=== PATIENT | female | born 1960 | race Caucasian/White ===

== ENCOUNTER 2019-04-12 23:02 | Inpatient (IN) | payer OTHER ==
[~2019-04-12] VITALS: Ht 162.6 cm; Wt 54.5 kg
[2019-04-12 23:10] VITALS: Ht 162.6 cm; Wt 54.5 kg
--- NOTE | 2019-04-12 23:15 | NUR ---
EKG IN PROGRESS IN TRIAGE.
--- NOTE | 2019-04-12 23:29 | NUR ---
PT PRESENTED TO ED FOR NONRADIATING CHEST PRESSURE, SOB, AND DRY COUGH WHEN "LAYING DOWN". PT A&0X4, SPEAKING FULL CLEAR SENTENCES. PT SHOWING AFIB ON CM. CM AND [address] BREATHING EVEN AND UNALBORED. PT STATES NAUSEA BUT DENIES VOMITING OR DIARRRBEA. AWAITING MSE. WILL CONTINUE TO MONITOR.
--- NOTE | 2019-04-13 00:15 | NUR ---
CARDIZEM 10 MG GIVEN IVP. PT TOLERATED WELL. PT STILL AFIB ON CM WITH HR BETWEEN 89-119. DR KEITA MADE AWARE. WILL CONTINUE TO MONITOR. FAMILY AT BEDSIDE, WILL CONTINUE TO MONITOR.
[2019-04-13 00:28] LABS: BASOPHIL % 0.5 % (0-2); PLATELET COUNT 204 x10^3mcL (130-400)
[2019-04-13 00:29] LABS: RED CELL DISTRIBUTION WIDTH 15.9 % (11.5-14.5)
[2019-04-13 00:56] LABS: CARBON DIOXIDE 22.7 mmol/L (21-32); CHLORIDE SERUM 107 mmol/L (98-107); CREATININE SERUM 0.9 mg/dL (0.6-1.0); GFR1 > 60 mL/min; GLUCOSE SERUM 114 mg/dL (74-106); POTASSIUM SERUM 4.3 mmol/L (3.5-5.1); SODIUM SERUM 142 mmol/L (136-145)
[2019-04-13 01:00] LABS: ALBUMIN 3.7 g/dL (3.4-5.0); ALKALINE PHOSPHATASE 92 U/L (46-116); ALT/SGPT 94 U/L (14-59); AST/SGOT 45 U/L (15-37); BILIRUBIN TOTAL 0.9 mg/dL (0.20-1.00); TOTAL PROTEIN, SERUM 6.8 g/dL (6.4-8.2)
--- NOTE | 2019-04-13 01:05 | NUR ---
PT SITTING ON GURNEY IN NAD, BREATHING EVEN AND UNLABORED. PT A&0X4, SPEAKING FULL CLEAR SENTENCES. CM AND [address] FAMILY AT BEDSIDE. WILL CONTINUE TO MONITOR.
--- NOTE | 2019-04-13 01:35 | NUR ---
NOTED NSR ON CM. DR KEITA AWARE, NO FURTHER ORDERS AT THIS TIME.
[2019-04-13 02:34] LABS: MAGNESIUM 2.1 mg/dL (1.8-2.4); PHOSPHOROUS 3.7 mg/dL (2.5-4.9)
[2019-04-13 03:17] LABS: T3 TOTAL 0.91 ng/mL
[2019-04-13 03:27] LABS: FREE T4 1.42 ng/dL (0.76-1.46)
--- NOTE | 2019-04-13 03:50 | NUR ---
REPORT GIVEN TO MAGGIE VITAL.
--- NOTE | 2019-04-13 04:15 | NUR ---
PT TRANSFERED TO ROOM 222A VIA GURNEY AT THIS TIME BY AMANDA VITAL AND SAHDE EMT. PT A&0X4, SPEAKING FULL CLEAR SENTENCES. PT BREATHING EVEN AND UNLABORED. IV PATENT WITH NO COMPLICATIONS. ARASH VITAL AT ASSUME FURTHER CARE OF PT AT THIS TIME.
--- NOTE | 2019-04-13 04:18 | NUR ---
PT TAKEN UPSTAIRS TO TELE FLOOR ROOM 222A BY MYSELF AND SHADE EMT. PT IS A/O X4. PT RESPS ARE E/U. NO INCIDENCE NOTED
--- NOTE | 2019-04-13 04:20 | NUR ---
RECEIVED PT FROM ED VIA BED, ACCOMPANIED BY NURSE. PT AAOX4, AUSTRIAN SPEAKING ONLY. ABLE TO MAKE NEEDS KNOWN. ON TELE#40 A-FIB, DENIES CP/PRESSURE, BP 118/84, HR 71. PALPABLE PULSES TO ALL EXTREMITIES. NO EDEMA NOTED. LUNG SOUNDS CTA ON RA. BREATHING EVEN AND UNLABORED, NO SIGNS OF RESP DISTRESS NOTED. ABD SOFT AND NONDISTENDED, ACTUIVE BS X4 QUAD. LAST BP 04/12/19. DENIES N/V AT THIS TIME. VOIDS FREELY BRP. AMBULATORY. IV SL TO LAC FLUSHING WELL. SITE WNL. NO SIGNS OF ACUTE DISTRESS NOTED. BED AT LOWEST SETTING, SIDE RAILS X2 UP, CALL LIGHT WITHING REACH. WILL CONTINUE TO MONITOR.
[2019-04-13 04:35] VITALS: BP 118/84
[2019-04-13 05:07] LABS: microscopic required? YES; urine erythrocyte TRACE (NEGATIVE)
[2019-04-13 05:27] LABS: AMPHETAMINE QUAL UR NONE DETECTED (See below)
[2019-04-13 06:27] LABS: BASOPHIL % 0.5 % (0-2); PLATELET COUNT 191 x10^3mcL (130-400)
--- NOTE | 2019-04-13 06:28 | NUR ---
PT IN BED AWAKE, BREATHING EVEN AND UNLABORED. NO SIGNS OF RESP DISTRESS NOTED. ALL NEEDS ASSSESSED AND ATTENDED TO. NO ACUTE DISTRESS NOTED. BED AT LOWEST SETTING, SIDE RAILS X2 UP, CALL LIGHT WITHING REACH. WILL ENDORSE CARE TO AM NURSE.
[2019-04-13 06:44] VITALS: BP 163/79
[2019-04-13 07:21] LABS: CALCIUM 8.3 mg/dL (8.5-10.1); CARBON DIOXIDE 25.2 mmol/L (21-32); CHLORIDE SERUM 109 mmol/L (98-107); CREATININE SERUM 0.8 mg/dL (0.6-1.0); GFR1 > 60 mL/min; GLUCOSE SERUM 88 mg/dL (74-106); POTASSIUM SERUM 4.1 mmol/L (3.5-5.1); SODIUM SERUM 144 mmol/L (136-145)
--- NOTE | 2019-04-13 07:37 | NUR ---
RECEIVED PATIENT FROM ZAHRAA SERRANO. PATIENT IN BED, DENIES ANY CHEST PAIN, DIZZINESS, OR NAUSEA. HR CURRENTLY AT 104. WILL CONTINUE TO MONITOR. PATIENT ALSO SEEN AMBULATING TO BR WITHOUT ASSIST. CALL LIGHT IN REACH AT THIS TIME.
[2019-04-13 09:36] VITALS: BP 113/58
--- NOTE | 2019-04-13 10:27 | NUR ---
PATIENT SEATED AT BEDSIDE, FAMILY IN ROOM. PATIENT HAS MILD COMPLAINTS OF STOMACH PAIN 5/10. PATIENT REFUSES ANY PRN PAIN CONTROL. DR ROA AND DR LEÓN IN TO SPEAK WITH PATIENT, STATES WE WILL WAIT FOR CARDIAC CONSULT FOR FURTHER CARE PLAN. PATIENT VERBALIZES UNDERSTANDING. WILL CONTINUE TO MONITOR AND WAIT FOR DR ALMODOVAR. CALL LIGHT IN REACH.
--- NOTE | 2019-04-13 10:39 | NUR ---
ECHOCARDIOGRAM COMPLETED.
[2019-04-13 12:39] VITALS: BP 117/76
--- NOTE | 2019-04-13 12:45 | NUR ---
PATIENT SEATED UP TO BEDSIDE EATING LUNCH TRAY. HR IS ELEVATED TO 140's. PATIENT DENIES CP, N/V, DIZZINESS. DR LEÓN AND CHARGE NURSE MADE AWARE. WILL ADMINISTER PO METOPROLOL ONCE VERIFIED BY PHARMACY AND CONTINUE TO MONITOR PATIENT.
--- NOTE | 2019-04-13 14:00 | NUR ---
IVP METOPROLOL 5 MG ADMINISTERED TO PATIENT. PATIENT HR NOW RANGING FROM 80-100s. NOTIFIED DR LEÓN AND CHARGE NURSE OSWALDO. WILL CONTINUE TO MONITOR FOR CHANGES IN HR. PATIENT CONTINUES TO DENY PALPITATIONS, N/A, CAST, DIZZINESS. CALL LIGHT IN REACH.
[2019-04-13 16:21] VITALS: BP 126/81
--- NOTE | 2019-04-13 18:12 | NUR ---
DR ALMODOVAR IN TO SPEAK WITH PATIENT. TWAN HAHN IN TO TRANSLATE FOR PATIENT. DR ALMODOVAR EXPLAINED TO PATIENT DISEASE PROCESS. A FIB PHAMPLETS PRINTED FOR PATIENT IN APPROPRIATE LANGUAGE. DR ALMODOVAR ADDED MEDICATION ORDERS, GIVEN. WILL CONTINUE TO MONITOR FOR ELEVATED HR. NO COMPLAINTS AT THIS TIME. CALL LIGHT IN REACH.
--- NOTE | 2019-04-13 19:28 | NUR ---
REPORT GIVEN TO RN MAGGIE & ZAHRAA CRONIN. MADE AWARE OF A FIB AND TACHYCARDIC EPISODES TODAY. ENDORSE PLAN OF CARE AND DIGOXIN DOSAGES FOR SHIFT. PATIENT IN BED WITH NO COMPLAINTS OR PALPITATIONS BUT CONTINUES TO HAVE A FIB AND FLUCTUATING HR. DR ALMODOVAR AWARE. FAMILY AT BEDSIDE, WITH CALL LIGHT IN REACH.
[2019-04-13 19:35] VITALS: BP 122/80
--- NOTE | 2019-04-13 19:35 | NUR ---
RCEIVED REPORT FORM AM NURSE. PT IN BED WITH FAMILY AT BEDSIDE. PT AAOX4, JAPANESE SPEAKING, ABLE TO MAKE NEEDS KNWON. TELE#40 A-FIB, BP 122/80, HR 79. DENIES CP/PRESSURE AT THIS TIME. PALPABLE PULSES TO BLE. NO EDEMA NOTED. LUNG SOUNDS CTA ON RA. BREATHING EVEN AND UNLABORED. NO ACUTE DISTRESS NOTED. ABD SOFT AND NONDISTENDED. ACTIVE BOWEL SOUND X4 QUAD. DENIES N/V AT THIS TIME. VOIDS FREELY BRP. AMBULATORY. IV SL TO LAC PATENT AND INTACT. SITE FREE FROM REDNESS AND SWELLING. BED AT LOWEST SETTING. SIDED RAILS X2 UP. CALL LIGHT WITHING REACH. WILL CONTINUE TO MONITOR.
--- NOTE | 2019-04-14 01:26 | NUR ---
PT IN BED SLEEPING COMFORTABLY. BREATHING EVEN AND UNLABORED ON RA. NO ACUTE DISTRESS NOTED. BED AT LOWEST POSITION, SIDE RAILS X2 UP, CALL LIGHT WITHING REACH. WILL CONTINUE TO MONITOR.
--- NOTE | 2019-04-14 05:02 | NUR ---
PT SLEPT WELL THROUGHOUT THE NIGHT. BREATHING EVEN AND UNLABORED ON RA . NO ACUTE DISTRESS NOTED. ALL NEEDS ASSESSED AND ATTENDED TO. BED AT LOWEST SETTING. SIDE RAILS X2 UP. CALL LIGHT WITHING REACH. WILL ENDORSE CARE TO AM NURSE.
[2019-04-14 05:45] VITALS: BP 124/89
[2019-04-14 06:48] LABS: BASOPHIL % 0.7 % (0-2); PLATELET COUNT 208 x10^3mcL (130-400)
[2019-04-14 07:16] LABS: CALCIUM 8.8 mg/dL (8.5-10.1); CARBON DIOXIDE 24.7 mmol/L (21-32); CHLORIDE SERUM 108 mmol/L (98-107); CREATININE SERUM 0.9 mg/dL (0.6-1.0); GFR1 > 60 mL/min; GLUCOSE SERUM 88 mg/dL (74-106); MAGNESIUM 2.2 mg/dL (1.8-2.4); PHOSPHOROUS 3.9 mg/dL (2.5-4.9); SODIUM SERUM 145 mmol/L (136-145)
[2019-04-14 07:40] LABS: RED CELL DISTRIBUTION WIDTH 16.2 % (11.5-14.5)
[2019-04-14 07:52] VITALS: BP 124/79
--- NOTE | 2019-04-14 07:55 | NUR ---
RECEIVED PATIENT FROM ZAHRAA SERRANO & ZAHRAA CRONIN. PATIENT IN BED. NO COMPLAINTS OF PAIN, PALPITATIONS, CAST, OR DIZZINESS. HR NOW UNDER CONTROL RANGING FROM 65-75. WILL INFORM RESIDENT DURING ROUNDS AND DR ALMODOVAR WHEN HE ARRIVES. WILL CONTINUE TO MONITOR FOR ELEVATED HR. CALL LIGHT IN REACH AT THIS TIME.
--- NOTE | 2019-04-14 10:00 | NUR ---
DR ROA & DR LEÓN IN TO SPEAK WITH PATIENT. STATES SHE IS LIKELY TO GO HOME TOMORROW PENDING CARDIOLOGY CONSULT. WILL AWAIT FOR DR ALMODOVAR TO RETURN FOR CARDIAC EVAL. PATIENT AWARE AND VERBALIZES UNDERSTANDING. CALL LIGHT IN REACH AT THIS TIME.
[2019-04-14 11:30] VITALS: BP 102/63
--- NOTE | 2019-04-14 14:17 | NUR ---
PATIENT SEATED IN BED. NO COMPLAINTS AT THIS TIME. FAMILY AT BEDSIDE. FURTHER EXPLAINED TO FAMILY FOR A FIB AND CONDITION. CALL LIGHT IN REACH AT THIS TIME.
[2019-04-14 15:57] VITALS: BP 129/66
--- NOTE | 2019-04-14 17:37 | NUR ---
PATIENT SEATED AT BEDSIDE. EATING LUNCH TRAY. HR RANGES CONTINUE TO BE IN 75-85. NO COMPLAINTS OF PAIN OR HEART PALPITATIONS. WILL ENDORSE TO ONCOMING SHIFT. CALL LIGHT IN REACH, FAMILY AT BEDSIDE.
--- NOTE | 2019-04-14 18:48 | NUR ---
PATIENT SEATED IN BED. NO COMPLAINTS AT THIS TIME. WILL ENDORSE TO ONCOMING NURSE. CALL LIGHT IN REACH.
[2019-04-14 19:10] VITALS: BP 116/77
--- NOTE | 2019-04-14 19:10 | NUR ---
RECEIVED PT AWAKE ALERT AND VERBALLY RESPONSIVE IN [place].DENIES CHESTPAIN AT THIS TIME.REMAINS ON TELE # 16 WITH READING A. FIB.BP 116/77 MMHG,HR 77.WILL CONTINUE TO MONITOR.
--- NOTE | 2019-04-15 04:46 | NUR ---
PT SLEPT WELL ALL NIGHT.DENIES CHESTPAIN/PALPITATIONS.AMBULATES TO BR NEEDED.ALL NEEDS MET.WILL CONTINUE TO MONITOR.
[2019-04-15 05:38] VITALS: BP 113/75
[2019-04-15 06:52] LABS: CALCIUM 8.2 mg/dL (8.5-10.1); CARBON DIOXIDE 28.1 mmol/L (21-32); CHLORIDE SERUM 106 mmol/L (98-107); CREATININE SERUM 0.8 mg/dL (0.6-1.0); GFR1 > 60 mL/min; GLUCOSE SERUM 83 mg/dL (74-106); MAGNESIUM 2.1 mg/dL (1.8-2.4); PHOSPHOROUS 4.2 mg/dL (2.5-4.9); SODIUM SERUM 144 mmol/L (136-145)
[2019-04-15 07:02] LABS: BASOPHIL % 0.8 % (0-2); PLATELET COUNT 246 x10^3mcL (130-400)
[2019-04-15 07:08] LABS: RED CELL DISTRIBUTION WIDTH 16.2 % (11.5-14.5)
--- NOTE | 2019-04-15 07:53 | NUR ---
A+OX4, NO RESPRIATORY DISTRESS NOTED, DENIES CHEST PAIN, TELE 40, A FIB, PULSES MODERATE AND EQUAL JHOAN, NO EDEMA NOTED, LUNG SOUNDS CTA, TOLERATING RA, BOWEL SOUNDS ACTIVE, VOIDING FREELY, AMBULATORY, SKIN INTACT, IV IN LAC SALINE LOCKED, SITE WNL.
--- NOTE | 2019-04-15 09:22 | NUR ---
PT RESTING IN BED, NO RESPIRATORY DISTRESS NOTED, DENIES CHEST PAIN, CALL LIGHT WITHIN REACH.
[2019-04-15 09:34] VITALS: BP 127/68
[2019-04-15] MEDS ORDERED: METOPROLOL TART50 MG PO (09:45)
[2019-04-15] MEDS ORDERED: XARELTO10 M1 PO (09:45)
[2019-04-15 10:04] VITALS: BP 127/68
--- NOTE | 2019-04-15 11:10 | NUR ---
PT GIVEN DC INSTRUCTIONS INCLUDING EDUCATION ON XARELTO AND PRESCRIPTIONS. PT VERBALIZED UNDERSTANDING. IV REMOVED WITH CATHETER INTACT, NO SWELLING OR ERYTHEMA AT SITE, TELE REMOVED AND RETURNED TO [facility]. PT STATES SHE WILL CALL HER TO PICK HER UP.
--- NOTE | 2019-04-15 11:34 | NUR ---
PT OFF UNIT AMBULATING INDEPENDENTLY ESCORTED BY CORE BAKER WITH ALL BELONGINGS.
== END 2019-04-15 11:18 | disposition home or self-care (01) | DRG 201 ==
LOC: ED 23:02 → DU 04-13 02:09
PROVIDERS: Emergency Medicine; ADMIT Internal Medicine
DX: I48.91 Unspecified atrial fibrillation (principal); I50.23 Acute on chronic systolic (congestive) heart failure; I42.9 Cardiomyopathy, unspecified; E03.9 Hypothyroidism, unspecified; E11.9 Type 2 diabetes mellitus without complications; M19.042 Primary osteoarthritis, left hand; M81.0 Age-related osteoporosis without current pathological fracture; Z68.30 Body mass index [BMI] 30.0-30.9, adult; Z79.84 Long term (current) use of oral hypoglycemic drugs; Z79.1 Long term (current) use of non-steroidal anti-inflammatories (NSAID); Z79.899 Other long term (current) drug therapy
CPT/HCPCS: 83880; 84439; G0378; J1160; J1940; J3490; J7030; Q0092

== ENCOUNTER 2019-04-29 22:41 | Inpatient (IN) | payer OTHER ==
[~2019-04-29] VITALS: Ht 162.6 cm; Wt 54.0 kg
[~2019-04-29 22:41] MED LIST: METOPROLOL TART50 MG PO; XARELTO10 M1 PO
--- NOTE | 2019-04-29 22:47 | NUR ---
TAKEN TO BED 7 FOR BEDSIDE TRIAGE
[2019-04-29 22:48] VITALS: Ht 162.6 cm; Wt 54.0 kg
--- NOTE | 2019-04-29 22:58 | NUR ---
PATIENT AAOX4 PRESENTS TO THE ED WITH WORSENING SYMPTOMS OF SOB. PT WAS DX WITH AFIB- BREATHING E/U, SKIN WARM DRY AND INTACT. PT PLACED ON MONITORS FOR FURTHER OBSERVATION. WILL CONTINUE TO MONITOR.
--- NOTE | 2019-04-29 23:34 | NUR ---
DR OLIVAREZ AT BEDSIDE FOR MSE.
--- NOTE | 2019-04-29 23:49 | NUR ---
IV FLUIDS INITIATED PER ORDER, PT VERBALIZED UNDERSTANDING PRIOR TO ADMINISTRATION. PT IS AWAKE AND ALERT, RESP E/U, DENIES PAIN. REMAINS ON FULL CM AND PULSE OXIMETRY.
[2019-04-30 00:02] LABS: BASOPHIL % 0.2 % (0-2); PLATELET COUNT 253 x10^3mcL (130-400)
[2019-04-30 00:10] LABS: RED CELL DISTRIBUTION WIDTH 16.7 % (11.5-14.5)
[2019-04-30 00:11] LABS: CALCIUM 8.8 mg/dL (8.5-10.1); CHLORIDE SERUM 107 mmol/L (98-107); CREATININE SERUM 0.9 mg/dL (0.6-1.0); GFR1 > 60 mL/min; GLUCOSE SERUM 117 mg/dL (74-106); SODIUM SERUM 142 mmol/L (136-145)
[2019-04-30 00:17] LABS: ALKALINE PHOSPHATASE 89 U/L (46-116); ALT/SGPT 88 U/L (14-59); AST/SGOT 47 U/L (15-37); BILIRUBIN TOTAL 0.8 mg/dL (0.20-1.00); HDL CHOLESTEROL 44 mg/dL (40-60); LIPASE 75 IU/L (73-393); TOTAL PROTEIN, SERUM 6.7 g/dL (6.4-8.2); TRIGLYCERIDES 53 mg/dL (<150)
[2019-04-30 00:19] LABS: ALBUMIN 3.3 g/dL (3.4-5.0); CHOLESTEROL 130 mg/dL (<200)
[2019-04-30 00:22] LABS: T3 TOTAL 0.77 ng/mL
--- NOTE | 2019-04-30 00:22 | NUR ---
MEDICATED PER MD ORDERS
[2019-04-30 00:23] LABS: FREE T4 1.25 ng/dL (0.76-1.46); FREE THYROXINE INDEX 3.5 ug/dL (1.4-4.5); T4(THYROXINE) 9.6 ug/dL (4.7-13.3)
[2019-04-30] MEDS ORDERED: LEVOTHYROXIN0.075 M2 PO (01:43)
[2019-04-30] MEDS ORDERED: GLU500 PO (01:44)
--- NOTE | 2019-04-30 01:45 | NUR ---
PATIENT LYING ON GURNEY- NO SS OF DISTRESS NOTED. BREATHING EVEN AND UNLABORED. PT STS SHE FEELS A LOT BETTER AFTER MEDICATION ADMINISTRATION.
--- NOTE | 2019-04-30 02:05 | NUR ---
MEDICATED PER MD ORDERS, SUBMITTED URINE TO LAB FOR ANALYSIS.
[2019-04-30 02:48] LABS: UA SPECIFIC GRAVITY 1.015 (1.005-1.035); microscopic required? YES; urine erythrocyte TRACE (NEGATIVE)
[2019-04-30 03:01] VITALS: BP 129/88
--- NOTE | 2019-04-30 03:11 | NUR ---
RECEIVED PT. FROM ER VIA GURNEY ACCOMPANIED BY ER NURSE. PT. AWAKE, ALERT, ORIENTED X4. DENIES HEADACHE OR DIZZINESS. BREATH SOUNDS CLEAR THROUGHOUT LUNG MORENO, RESP. EVEN, UNLABORED. NO SOB NOTED. PT. ON RA. PT. RECEICVED LASIX IV IN ER, VOIDING FREQUENTLY SINCE ARRIVAL TO UNIT. 680 ML URINE OUTPUT THUS FAR. ABD. SOFT AND ROUND, BOWEL SOUNDS ACTIVE. DENIES ABD. PAIN, DENIES NAUSEA. PEDAL PULSES STRONG. PT. ON TELE #23, AFIB. IVF NS STARTED AT 125CC/HR PER ORDERS. CALL LIGHT PLACED WITHIN REACH.
[2019-04-30 05:39] VITALS: BP 126/78
--- NOTE | 2019-04-30 06:38 | NUR ---
PT. RESTED WELL SINCE ARRIVAL TO UNIT. NO COMPLAINTS THIS MORNING. IVF INFUSING WELL. SITE REMAINS INTACT. CALL LIGHT WITHIN REACH. WILL ENDORSE PT. CARE TO INCOMING NURSE.
[2019-04-30 06:52] LABS: CALCIUM 8.6 mg/dL (8.5-10.1); CARBON DIOXIDE 28.4 mmol/L (21-32); CHLORIDE SERUM 107 mmol/L (98-107); CREATININE SERUM 0.8 mg/dL (0.6-1.0); GFR1 > 60 mL/min; GLUCOSE SERUM 91 mg/dL (74-106); MAGNESIUM 1.9 mg/dL (1.8-2.4); PHOSPHOROUS 4.4 mg/dL (2.5-4.9); POTASSIUM SERUM 3.5 mmol/L (3.5-5.1); SODIUM SERUM 144 mmol/L (136-145)
[2019-04-30 07:06] LABS: BASOPHIL % 0.5 % (0-2); PLATELET COUNT 260 x10^3mcL (130-400)
--- NOTE | 2019-04-30 07:20 | NUR ---
REPORT RCD FROM ZAHRAA DAVIS. PATIENT AWAKE, ALERT, LYING SUPINE IN BED, NO DISTRESS NOTED. NS 125 ML/HR INFUSING TO LAC WITHOUT COMPLICATIONS, ONE BAG, INFUSION ALMOST COMPLETED. TELE 23, AFIB. PATIENT DENIES CHEST PAIN OR SHORTNESS OF BREATH. HR VARYING BETWEEN 80s TO 150s PER TELEMETRY. SHIFT ASSESSMENT PERFORMED AND DOCUMENTED. BED LOW, CALL LIGHT WITHIN REACH. WILL MONITOR.
[2019-04-30 07:24] LABS: RED CELL DISTRIBUTION WIDTH 16.8 % (11.5-14.5)
[2019-04-30 08:15] VITALS: BP 119/77
--- NOTE | 2019-04-30 08:23 | NUR ---
0750: CALLED BY TELEMETRY FOR HR FLUCTUATING 130-150. PATIENT DENIES CHEST PAIN. PATIENT UP AND DOWN TO BATHROOM, EATING BREAKFAST. NO SHORTNESS OF BREATH. BP 118/72, UNABLE TO GIVE METOPROLOL PER MAR BECAUSE PARAMETER STATE HOLD IF SBP LESS THAN 120. GAVE XARELTO PER NOV. HR CURRENTLY 80-100, NO CHEST PAIN OR SHORTNESS OF BREATH. WILL MONITOR. PATIENT LYING IN BED AT THIS TIME.
--- NOTE | 2019-04-30 11:00 | NUR ---
MD ROUNDS WITH DR. ROA, MEDICAL TEAM, G NURSE, ATTDG NURSE. DISCUSSED WITH ATTENDING, DR. STRAUSS AND DR. ROA MULTIPLE CALLS FROM TELEMETRY RE: HR UP TO 150s AND BETABLOCKER HELD FOR SBP <120 (110-118). PER DR. MOLINA, GIVE BETA LEONELA AT THIS TIME AND THEY WILL ADJUST PARAMETERS TO SBP <100 HOLD.
[2019-04-30 11:59] VITALS: BP 121/78
[2019-04-30 16:48] VITALS: BP 137/90
--- NOTE | 2019-04-30 19:16 | NUR ---
REPORT GIVEN TO ZAHRAA DAVIS. PATIENT RECEIVING LOADING DOSE OF LANOXIN PER NOV. PATIENT CONTINUES TO BE WITHOUT CHEST PAIN OR SHORTNESS OF BREATH WITH HR RANGING FROM 80s TO 150s, ASYMPTOMATIC. SALINE LOCK TO LAC PATENT. PATIENT IN NO ACUTE DISTRESS. FAMILY AT BEDSIDE. BED LOW, CALL LIGHT WITHIN REACH. CARE ENDORSED.
--- NOTE | 2019-04-30 19:56 | NUR ---
PT. AWAKE, ALERT, ORIENTED X4. DENIES HEADACHE OR DIZZINESS. BREATH SOUNDS CLEAR THROUGHOUT LUNG MORENO, RESP. EVEN, UNLABORED. NO SOB NOTED. PT. ON RA. PT. AFIB ON TELE #23, AFIB. DENIES CHESTPAIN OR DISCOMFORT. PEDAL PULSES STRONG BLE. ABD. SOFT AND ROUND, BOWEL SOUNDS ACTIVE. IV HEPLOCKED, FLUSHING WELL, SITE INTACT. FAMILY AT BEDSIDE. CALL LIGHT WITHIN REACH.
[2019-04-30 21:32] VITALS: BP 112/72
--- NOTE | 2019-05-01 01:00 | NUR ---
PT. APPEARS TO BE SLEEPING, EYES CLOSED. NO COMPLAINTS THUS FAR. REMAINS AFIB ON MONITOR, RATE FLUCTUATES BETWEEN 58-76. SCHEDULED DOSE OF DIGOXIN HELD AT THIS TIME. WILL MONITOR.
[2019-05-01 06:20] VITALS: BP 117/73
--- NOTE | 2019-05-01 06:41 | NUR ---
PT. STATED THAT SHE SLEPT WELL THROUGHOUT THE NIGHT. NO COMPLAINTS OF CHESTPAIN, NO SOB THROUGHOUT NIGHT. REMAINS AFIB ON MONITOR, RATE 68. IV SITE HEPLOCKED, INTACT. CALL LIGHT WITHIN REACH. WILL ENDORSE PT. CARE TO INCOMING NURSE.
[2019-05-01 07:00] LABS: CALCIUM 8.6 mg/dL (8.5-10.1); CARBON DIOXIDE 25.3 mmol/L (21-32); CHLORIDE SERUM 106 mmol/L (98-107); CREATININE SERUM 0.9 mg/dL (0.6-1.0); GFR1 > 60 mL/min; GLUCOSE SERUM 82 mg/dL (74-106); MAGNESIUM 2.1 mg/dL (1.8-2.4); POTASSIUM SERUM 3.8 mmol/L (3.5-5.1); SODIUM SERUM 142 mmol/L (136-145)
[2019-05-01 07:02] LABS: BASOPHIL % 0.7 % (0-2); PLATELET COUNT 279 x10^3mcL (130-400)
[2019-05-01 07:20] VITALS: BP 131/85
[2019-05-01 07:34] LABS: RED CELL DISTRIBUTION WIDTH 16.7 % (11.5-14.5)
--- NOTE | 2019-05-01 07:56 | NUR ---
RECEIVED PATIENT FROM ZAHRAA DAVALOS. PATIENT SEATED AT BEDSIDE, CURRENTLY NO COMPLAINTS OF PAIN, CAST, DIZZINESS, OR PALPITATIONS. WILL CONTINUE TO MONITOR HEART RATE AND ADMINISTER MEDICATIONS. CALL LIGHT IN REACH AT THIS TIME. ENGLISH DIVISION CHAIR MARY BETH NEVAREZ TO SPEAK WITH PATIENT ABOUT PLAN OF CARE. PATIENT AGREES.
--- NOTE | 2019-05-01 10:44 | NUR ---
PATIENT IN BED, WITH NO COMPLAINTS OF CP OR PALPITATIONS. WILL CONTINUE TO MONITOR. CALL LIGHT IN REACH.
[2019-05-01 12:20] VITALS: BP 107/66
--- NOTE | 2019-05-01 13:28 | NUR ---
DR ALMODOVAR IN TO SEE PATIENT, WILL TRANSFER PATIENT TO MED SURG. SPOKE WITH PATIENT ABOUT PLAN OF CARE. NOTIFIED CHARGE NURSE ALYCE, TELEMETRY REMOVED AND RETURNED TO [facility]. CALL LIGHT IN REACH, FAMILY AT BEDSIDE.
[2019-05-01 16:20] VITALS: BP 112/64
--- NOTE | 2019-05-01 19:28 | NUR ---
REPORTED GIVEN TO ZAHRAA PEREZ. PATIENT IN BED AT HIS TIME, NO COMPLAINTS OF PAIN OR PALPITATIONS. CALL LIGHT IN REACH AND ZAHRAA PEREZ MADE AWARE OF TODAYS EVENTS.
--- NOTE | 2019-05-01 19:56 | NUR ---
RECEIVED PT FROM PREVIOUS SHIFT. PT A/OX4. DENIES PAIN. DENIES SOB ON RA. IV PATENT, FLUSHING WELL WITH NO S/S OF INFILTRATION. CALL LIGHT WITHIN REACH, BED IN LOW POSITION. WILL CONTINUE TO MONITOR.
[2019-05-01 20:49] VITALS: BP 94/56
--- NOTE | 2019-05-02 01:17 | NUR ---
PT RESTING IN NO ACUTE DISTRESS. RR EVEN AND UNLABORED. CALL LIGHT WITHIN REACH, BED IN LOW POSITION. WILL CONTINUE TO MONITOR.
[2019-05-02 05:42] VITALS: BP 98/62
--- NOTE | 2019-05-02 07:41 | NUR ---
ALERT AND ORIENTED. VS WNL. NO C/O PAIN OR DISCOMFORT. CALL LIGHT WITHIN REACH. WILL CONTINUE WITH PLAN OF CARE.
[2019-05-02 08:14] LABS: BASOPHIL % 0.6 % (0-2); PLATELET COUNT 330 x10^3mcL (130-400)
[2019-05-02 08:24] VITALS: BP 97/68
[2019-05-02 08:35] LABS: CALCIUM 8.6 mg/dL (8.5-10.1); CHLORIDE SERUM 105 mmol/L (98-107); CREATININE SERUM 0.9 mg/dL (0.6-1.0); GFR1 > 60 mL/min; GLUCOSE SERUM 83 mg/dL (74-106); POTASSIUM SERUM 3.8 mmol/L (3.5-5.1); SODIUM SERUM 142 mmol/L (136-145)
[2019-05-02] MEDS ORDERED: D25 PO (13:37)
[2019-05-02] MEDS ORDERED: LASIX40 MG PO (13:38)
[2019-05-02 14:37] VITALS: BP 97/68
--- NOTE | 2019-05-02 15:13 | NUR ---
WILL BE DC;D HOME THIS AFTERNOON. DC INSTRUCTIONS REVIEWED WITH PT AND FAMILY. RX GIVEN. PT INSTRUCTED TO TAKE MEDS PRESCRIBED, VERBALIZED UNDERSTANDING. HL REMOVED AND SITE CLEAR. NO C/O PAIN OR DISCOMFORT AT THIS TIME. NO CHANGES IN VS. PT IS GETTING READY TO LEAVE.
== END 2019-05-02 15:15 | disposition home or self-care (01) | DRG 194 ==
LOC: ED 22:41 → DU 04-30 00:47 → MU 04-30 00:47 → DU 04-30 01:36 → MU 05-01 13:17
PROVIDERS: Internal Medicine; Specialist; ADMIT General Practice
DX: I50.43 Acute on chronic combined systolic (congestive) and diastolic (congestive) heart failure (principal); N17.0 Acute kidney failure with tubular necrosis; I42.9 Cardiomyopathy, unspecified; I48.2 Chronic atrial fibrillation; E11.9 Type 2 diabetes mellitus without complications; E03.9 Hypothyroidism, unspecified; M81.0 Age-related osteoporosis without current pathological fracture; R74.0 Nonspecific elevation of levels of transaminase and lactic acid dehydrogenase [LDH]; Z68.23 Body mass index [BMI] 23.0-23.9, adult; Z79.84 Long term (current) use of oral hypoglycemic drugs
CPT/HCPCS: 82962; 83880; 84439; G0378; J1160; J1940; J3490; J7030; Q0092